=== PATIENT | female | born 1965 | race Caucasian/White ===

== ENCOUNTER 2018-03-08 17:27 | Emergency (ER) | payer MEDICAID ==
[2018-03-08] MEDS: HYDROCODONE/APAP (5/325) TAB PO (20:12)
== END 2018-03-08 20:16 | disposition home or self-care (01) ==
LOC: FTE 17:27
DX: G51.0 Bell's palsy (principal)
CPT/HCPCS: 70450; 99284-25

== ENCOUNTER 2018-03-18 22:28 | Emergency (ER) | payer MEDICAID ==
[2018-03-18 23:52] LABS: ADD MAN DIFF? NO
[2018-03-18 23:54] LABS: WHITE BLOOD COUNT 8.2 10^3/ul (4.8-10.8)
[2018-03-18 23:54] LABS: BASOPHIL # 0.1 10^3/ul (0.0-0.1); BASOPHILS % 0.6 % (0.0-2.0); EOSINOPHILS # 0.3 10^3/ul (0.0-0.5); EOSINOPHILS % 4.1 % (0.0-7.0); HEMATOCRIT 42.7 % (37.0-47.0); HEMOGLOBIN 14.3 g/dl (12.0-16.0); LYMPHOCYTES # 2.2 10^3/ul (0.8-2.9); LYMPHOCYTES % 26.1 % (15.0-51.0); MEAN CORPUSCULAR HEMOGLOBIN 29.8 pg (29.0-33.0); MEAN CORPUSCULAR HGB CONC 33.5 g/dl (32.0-37.0); MEAN PLATELET VOLUME 10.4 fl (7.4-10.4); MONOCYTE # 0.6 10^3/ul (0.3-0.9); MONOCYTES % 7.2 % (0.0-11.0); NEUTROPHILS % 61.3 % (39.0-77.0); PLATELET COUNT 215 10^3/UL (140-415); RED CELL DISTRIBUTION WIDTH 13.2 % (11.5-14.5)
[2018-03-19 00:14] LABS: PROTIME 12.2 Sec (11.9-14.9)
[2018-03-19 00:15] LABS: PARTIAL THROMBOPLASTIN TIME 27.5 Sec (25.0-35.0)
[2018-03-19] MEDS: ONDANSETRON 4 MG INJ IV (00:21)
[2018-03-19] MEDS: morphine 4 MG/ML VIAL IV (00:21)
[2018-03-19 00:23] LABS: ANION GAP 13 (8-16); BLOOD UREA NITROGEN 12 mg/dl (7-20); CALCIUM 9.5 mg/dl (8.4-10.2); CARBON DIOXIDE 31 mmol/L (21-31); CHLORIDE 104 mmol/L (97-110); CREATININE 0.62 mg/dl (0.44-1.00); GLUCOSE 126 mg/dl (70-220); POTASSIUM 4.7 mmol/L (3.5-5.1); SODIUM 143 mmol/L (135-144)
== END 2018-03-19 04:17 | disposition home or self-care (01) ==
LOC: E/R 22:28
DX: G51.0 Bell's palsy (principal); R40.2142 Coma scale, eyes open, spontaneous, at arrival to emergency department; R40.2252 Coma scale, best verbal response, oriented, at arrival to emergency department; R40.2362 Coma scale, best motor response, obeys commands, at arrival to emergency department
CPT/HCPCS: 36415; 70450; 71045; 80048; 85025; 85610; 85730; 96374; 96375; 99285-25